=== PATIENT | female | born 1980 | race Hispanic/Latino ===

== ENCOUNTER 2017-08-04 13:13 | Emergency (ER) | payer OTHER ==
[~2017-08-04] VITALS: Ht 162.6 cm; Wt 52.0 kg
[~2017-08-04 13:13] MED LIST: AMOXICILLIN500 MG PO; BENEDRYL; CIPROFLOXACN500 MG PO; DEPO-MEDROL40 MG/ML IM; HYDROXYZINE HCL25 MG OR; KENALOG15 GM/TUBE EX; LAMISIL AT1 % EX
[2017-08-04] MEDS ORDERED: METFORMIN500 M2 PO (13:22)
[2017-08-04] MEDS ORDERED: GLIPIZIDE ER2.5 MG PO (13:23)
[2017-08-04 14:55] LABS: HEMATOCRIT 31.3 % (37.0-47.0); HEMOGLOBIN 10.8 g/dl (12.0-16.0); IMMATURE GRANULOCYTES 0.5 % (0.0-1.0); MEAN CELL VOLUME 88.4 fL CALC (80.0-100.0); MEAN CORPUSCULAR HGB 30.5 pG CALC (26.0-32.0); MEAN CORPUSCULAR HGB CONC 34.5 g/L CALC (32.0-36.0); NEUT# 6.57 thou/uL (2.00-7.15); RED BLOOD COUNT 3.54 mill/uL (4.20-5.60); RED CELL DISTRI WIDTH 14.1 % (11.5-15.5)
[2017-08-04 15:07] LABS: ALBUMIN 3.8 g/dL (3.2-5.0); ALKALINE PHOSPHATASE 68 u/l (38-126); ANION GAP 14 (6-22 (CALC)); BILIRUBIN, TOTAL 0.4 mg/dL (0.0-1.4); BUN 6 mg/dL (7-17); BUN/CREATININE RATIO 13 (12-20 (CALC)); CALCIUM 9.5 mg/dL (8.4-10.2); CARBON DIOXIDE 20 mmol/l (22-30); CHLORIDE 104 mmol/l (95-108); CREATININE 0.4 mg/dL (0.5-1.0); GFR > 60 ML/MIN (>=60 (CALC)); GFR FOR AFR.AMER. > 60 ML/MIN (>=60 (CALC)); GLUCOSE 101 mg/dL (65-105); LIPASE 59 u/l (23-300); POTASSIUM 3.7 mmol/l (3.5-5.1); SGOT/AST 44 u/l (14-36); SGPT/ALT 45 u/l (9-52); SODIUM 135 mmol/l (137-146); TOTAL PROTEIN 7.1 g/dL (6.3-8.2)
[2017-08-04 15:19] LABS: MYOGLOBIN 17 ng/mL (0 - 62)
[2017-08-04 15:51] LABS: BETA-HCG, QUANT(RESULT NUMBER) 22262 mIU/mL
[2017-08-04 17:14] LABS: URINE BILIRUBIN - DIPSTICK NEGATIVE (NEGATIVE); URINE BLOOD DIPSTICK NEGATIVE (NEGATIVE); URINE CLARITY CLEAR; URINE COLOR YELLOW; URINE GLUCOSE - DIPSTICK NEGATIVE (NEGATIVE); URINE KETONE 15 mg/dL (NEGATIVE); URINE LEUK ESTERASE NEGATIVE (Negative); URINE NITRITE - DIPSTICK NEGATIVE (Negative); URINE PROTEIN - DIPSTICK NEGATIVE (NEG-TRACE); URINE SPECIFIC GRAVITY <=1.005; URINE UROBILINOGEN - DIPSTICK 0.2 E.U./dL (0.2)
[2017-08-04 20:30] VITALS: BP 99/60
== END 2017-08-04 20:32 | disposition short-term general hospital (02) | DRG 781 ==
LOC: ED
PROVIDERS: Emergency Medicine
DX: O26.892 Other specified pregnancy related conditions, second trimester (principal); R10.9 Unspecified abdominal pain; Z3A.17 17 weeks gestation of pregnancy; V48.5XXA Car driver injured in noncollision transport accident in traffic accident, initial encounter